=== PATIENT | female | born 1960 | race Caucasian/White ===

== ENCOUNTER 2023-04-04 10:22 | Emergency (ER) | payer OTHER, MEDICAID ==
[~2023-04-04] VITALS: Ht 172.7 cm; Wt 77.1 kg
[2023-04-04 10:22] VITALS: BP 140/70; PULSE 70; RESP 20; TEMP 97.8; O2SAT 98
[2023-04-04 11:15] VITALS: BP 138/72; PULSE 70; RESP 20; TEMP 98; O2SAT 99
== END 2023-04-04 11:15 | disposition home or self-care (01) ==
LOC: MED 10:22
DX: L08.9 Local infection of the skin and subcutaneous tissue, unspecified (principal); E11.9 Type 2 diabetes mellitus without complications; F17.210 Nicotine dependence, cigarettes, uncomplicated; Z86.69 Personal history of other diseases of the nervous system and sense organs; Z98.890 Other specified postprocedural states; Z88.8 Allergy status to other drugs, medicaments and biological substances; Z88.0 Allergy status to penicillin; Z88.1 Allergy status to other antibiotic agents; Z88.5 Allergy status to narcotic agent
CPT/HCPCS: 99283